=== PATIENT | female | born 1990 | race Caucasian/White ===

== ENCOUNTER → 2019-03-17 | Outpatient (CLI) | payer BC | LOC: BHSO 11:02 | DX: F41.1 Generalized anxiety disorder (principal) ==

== ENCOUNTER → 2019-04-18 | Outpatient (CLI) | payer BC | LOC: BHSO 15:28 | DX: F31.81 Bipolar II disorder (principal) | CPT/HCPCS: G0463 ==

== ENCOUNTER → 2019-05-29 | Outpatient (CLI) | payer BC | LOC: BHSO 10:23 | DX: F31.81 Bipolar II disorder (principal) | CPT/HCPCS: G0463 ==

== ENCOUNTER → 2019-07-17 | Outpatient (CLI) | payer BC | LOC: BHSO 09:03 | DX: F31.81 Bipolar II disorder (principal) | CPT/HCPCS: G0463 ==

== ENCOUNTER → 2019-10-17 | Outpatient (CLI) | payer BC | LOC: BHSO 15:22 | DX: F31.81 Bipolar II disorder (principal) | CPT/HCPCS: G0463 ==

== ENCOUNTER → 2019-12-22 | Outpatient (CLI) | payer BC | LOC: BHSO 16:21 | DX: F31.81 Bipolar II disorder (principal) | CPT/HCPCS: G0463 ==

== ENCOUNTER → 2020-01-25 | Outpatient (CLI) | payer BC | LOC: BHSO 16:02 | DX: F41.1 Generalized anxiety disorder (principal) | CPT/HCPCS: G0463 ==

== ENCOUNTER → 2020-02-23 | Outpatient (CLI) | payer BC | LOC: BHSO 13:04 | DX: F31.81 Bipolar II disorder (principal) | CPT/HCPCS: G0463 ==